=== PATIENT | female | born 1945 | race Caucasian/White ===

== ENCOUNTER 2017-07-14 09:02 | Day surgery (SDC) | payer MEDICARE, BC ==
[2017-07-14] MEDS ORDERED: LIDOCAINE HCL 1% MPF SOL ONE (09:15)
[2017-07-14] MEDS ORDERED: PROPOFOL 500 MG/50 ML EMU IV ONE (09:15)
[2017-07-14 12:12] VITALS: O2SAT 97
[2017-07-14 12:39] VITALS: BP 136/83; PULSE 76; RESP 20; TEMP 97.8
== END 2017-07-14 12:55 | disposition home or self-care (01) | DRG 951 ==
LOC: SURG 09:02
PROVIDERS: ATTEND Surgery
DX: Z12.11 Encounter for screening for malignant neoplasm of colon (principal); K62.1 Rectal polyp
CPT/HCPCS: J2001; J2704

== ENCOUNTER 2018-10-17 11:01 | Day surgery (SDC) | payer MEDICARE, BC ==
[2018-10-17] MEDS ORDERED: PROPOFOL 500 MG/50 ML EMU IV ONE (11:50)
[2018-10-17] MEDS ORDERED: MIDAZOLAM 2 MG/2 ML SOL ONE (11:50)
[2018-10-17] MEDS ORDERED: ONDANSETRON HCL 4 MG/2 ML SOL ONE (11:50)
[2018-10-17] MEDS ORDERED: FENTANYL 100MCG/2ML SOL ONE (11:50)
[2018-10-17] MEDS ORDERED: LIDOCAINE HCL 1% MPF 30 SOL ONE (11:51)
[2018-10-17] MEDS ORDERED: BUPIVACAINE LIPOSOME 20 ML SUS ONE (11:51)
[2018-10-17] MEDS ORDERED: BUPIVACAINE HCL 0.25% MPF 30 ML SOL INFIL ONE (13:31)
[2018-10-17 14:26] VITALS: TEMP 97.3
[2018-10-17 14:49] VITALS: RESP 16
[2018-10-17 16:02] VITALS: BP 131/77; PULSE 72; O2SAT 98
== END 2018-10-17 15:54 | disposition home or self-care (01) | DRG 566 ==
LOC: SURG 11:01
PROVIDERS: ATTEND Podiatrist
DX: M20.11 Hallux valgus (acquired), right foot (principal); M21.611 Bunion of right foot; M20.5X1 Other deformities of toe(s) (acquired), right foot
CPT/HCPCS: J2250; J2405; J3010; L3260; A6402; J2001; J2704